=== PATIENT | male | born 1945 | race Caucasian/White ===

== ENCOUNTER 2017-10-14 05:20 | Inpatient (IN) | payer MEDICARE, SELFPAY ==
[2017-09-29 12:07] VITALS: BP 157/88; PULSE 68; RESP 16; TEMP 36.6; O2SAT 97; BMI 40.7
--- NOTE | 2017-09-29 12:13 | SDCEKG_ITS ---
Test Reason : Blood Pressure : / mmHG Vent. Rate : 070 BPM Atrial Rate : 070 BPM P-R Int : 168 ms QRS Dur : 104 ms QT Int : 400 ms P-R-T Axes : 023 048 052 degrees QTc Int : 432 ms Normal sinus rhythm Normal ECG Confirmed by LINO PERES, CHANDU ([id number]), editor magazine BRANDON HURTADO ([id number]) on 10/01/2017 4:15:23 PM Referred By: Francisco Moya Confirmed By:CHANDU HUYNH MD
[2017-09-29 12:56] LABS: Absolute Lymphocyte Count 2.02 X10^3/ul (0.83-4.51); Absolute Neutrophil Count 4.5 X10^3/uL (2.0-7.7); Basophil# 0.04 X10^3/uL; Basophil% 0.5 % (0-1); Eosinophil# 0.19 X10^3/uL; Eosinophils% 2.6 % (0-5); Hematocrit 43.3 % (40-54); Hemoglobin 14.7 g/dl (13.0-16.5); Lymphocyte # 2.02 X10^3/ul (4.0); Lymphocyte % 27.6 % (19-41); Mean Corp Hgb Conc 33.9 g/gl (32-36); Mean Corpuscular Hgb 29.8 pg (27.0-32.0); Mean Corpuscular Volume 87.8 fL (80-94); Mean Platelet Vol. 10.9 fl (6.2-12.0); Monocyte# 0.61 X10^3/uL; Monocyte% 8.3 % (0-10); Neutrophil # 4.45 X10^3/uL (2.7-7.7); Neutrophil % 60.7 % (47-70); Platelet Count 196 K/mm3 (150-450); RBC Distribution Width CV 13.5 % (11.6-14.6); Red Blood Count 4.93 M/mm3 (4.6-6.2); White Blood Count 7.3 K/mm3 (4.4-11.0)
[2017-09-29 12:58] LABS: POSITIVE COUNT NO; POSITIVE DIFFERENTIAL NO; POSITIVE MORPHOLOGY NO
--- NOTE | 2017-09-29 12:58 | PCM.HP.BLA ---
History and Physical DATE OF SURGERY: 10/14/2017 SCHEDULED PROCEDURE: Left total shoulder arthroplasty, possible reverse total shoulder arthroplasty HISTORY OF PRESENT ILLNESS: This is a 72-year-old male who is been having ongoing shoulder pain for over 1 year. He states it is progressively become worse. Pain can reach as high as a 10 out of 10. He has difficult time raising his left shoulder due to the pain. He continues to lose range of motion of left shoulder. Patient does have grinding and popping sensation in the left shoulder. Pain is primarily over the anterior and lateral aspect. Patient has been using Tylenol arthritis 3 times a day with no significant relief. His primary care physician has him on an anti-inflammatory. X-rays of the left shoulder has shown severe glenohumeral osteoarthritis. Patient currently denies any chest pain, shortness of breath, fevers chills, or recent infections. Patient does have medical history pertinent for hypertension as well as previous stroke in the past. We are obtaining surgical clearance from patient's primary care physician. REVIEW OF SYSTEMS: ROS: Const: Reports hard of hearing, but denies anorexia, change in appetite, fever, vision problems and weight change. CV: Denies chest pain, heart murmur, irregular heartbeat and peripheral vascular disease. Resp: Denies asthma, cough, pneumonia, sleep apnea, SOB, tuberculosis and wheezing. GI: Denies constipation, diarrhea, difficulty swallowing, heartburn, nausea, bloody stools and vomiting. : Urinary: denies incontinence. Musculo: Reports leg swelling, limp, trouble walking and weakness. Skin: Denies Raynaud's, history of shingles and tattoo. Neuro: Denies ambulatory dysfunction, dizziness, numbness/tingling and tremor. Psych: Reports stress, but denies anxiety, depression, insomnia and mental illness. Chan/Lymph: Denies anemia, bleeding/bruising tendency and past transfusion. Reviewed, no changes. PAST MEDICAL HISTORY: Advance Care Plan: Other Directive, POA Effective Date: 09/10/2017 Other Directive, LIVING WILL Effective Date: 09/10/2017 PMH: Medical Problems: Arthritis, High Blood Pressure, Hypercholesterolemia, Stroke Accidents: Left Knee Injury - (2000) Surgical Hx: Knee Arthroscopy Lt - (2000) DR. BUBBA HURTADO LT TKR - (03/05/2011) [email or web address] RT TKR - (05/12/2012) MARIA TERESA @ [facility] Hip Replacement RT - (08/15/2015) [email or web address] Anesthesia Complications: None Assistive Devices: Glasses, Dentures, Hearing Aid Reviewed and updated. 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 Personal Habits: Smoking: Patient is a former smoker.Cigarette Use: Never Smoked Cigarettes.Alcohol: Denies use.Drug Use: Denies Use.Enjoy Exercising: Exercises 1-3 X/Week. Reviewed, no changes. VITALS: Ht: 67 Wt: 260lb Wt k.[id number] BMI: 40.7 BP: 134/82 Pulse: 76 Resp: 16 T: 97.8 T: 36.6C ALLERGIES: No Known Drug Allergy MEDICATIONS: Hydrochlorothiazide 25 mg 1 po qdAY, Lisinopril 20mg 1 tab PO daily, Amlodipine Besylate 5 mg 1 tab PO daily, Etodolac 500 mg 1 by mouth every day, Pravastatin Sodium 10 mg 1/2 PO qday, Potassium Chloride ER 10 Meq 1po qday, Aspir-81 81 mg 1 by mouth every day PRE-OP EXAM: General appearance:NORMAL Other: Eyes: Conjunctivae and lids: NORMAL Pupils: ERR Ears, Nose, Mouth, and Throat: NORMAL Other: Inspection of lips, teeth and gums: NORMAL Other: Neck: Examination of neck: no masses noted. Respiratory: Assessment of respiratory effort: NORMAL Other: Auscultation of lungs: clear to auscultation no wheezes, rhonchi or rales. Cardiovascular: Auscultation of heart: regular rate and rhythm, no murmurs, gallops or rubs. Exam of carotid arteries: NORMAL Other: Gastrointestinal: Exam of abdomen: soft, nontender, nondistended bowel sounds present. PHYSICAL EXAMINATION: On exam left shoulder is cool to touch without erythema. Patient has tenderness to palpation of the anterior and lateral aspect of the left shoulder. Patient has limited active range of motion the left shoulder secondary to pain. Passively patient can forward elevate to 90?. Patient has decreased strength on the left shoulder. Sensations intact to light touch. IMAGING STUDIES: X-rays were obtained at [facility] [place] on September 18, 2017 of the left shoulder which does reveal severe glenohumeral osteoarthritis with joint space narrowing, posterior glenoid wear and inferior osteophyte formation of the humeral head. IMPRESSION: 1. Severe left shoulder osteoarthritis 2. Hypertension 3. Hypercholesterolemia 4. History of stroke PLAN: Dr. Moya did discuss and review with the patient all treatment options including surgical versus nonsurgical. Patient wishes to proceed with above-stated procedure. Potential risks, benefits, and complications of this procedure were discussed in detail including but not limited to , infection, nerve and blood vessel damage, persistent pain, numbness, tingling, paresthesias, blood clot, pulmonary embolism, and requirement for further surgery. The patient expressed full understanding has no further questions for the doctor. Patient does agree to proceed with the above-stated procedure and has signed the surgery consent form. Patient will undergo preoperative lab work and EKG. We are obtaining surgical clearance from patient's primary care physician. ___ I have re-examined the patient. There are no clinical changes since date of exam. ___ See progress notes for changes. ___ Dictated on admission Date: Time: Signature:
--- NOTE | 2017-09-29 13:04 | HP.PCM_ITS ---
History and Physical DATE OF SURGERY: 10/14/2017 SCHEDULED PROCEDURE: Left total shoulder arthroplasty, possible reverse total shoulder arthroplasty HISTORY OF PRESENT ILLNESS: This is a 72-year-old male who is been having ongoing shoulder pain for over 1 year. He states it is progressively become worse. Pain can reach as high as a 10 out of 10. He has difficult time raising his left shoulder due to the pain. He continues to lose range of motion of left shoulder. Patient does have grinding and popping sensation in the left shoulder. Pain is primarily over the anterior and lateral aspect. Patient has been using Tylenol arthritis 3 times a day with no significant relief. His primary care physician has him on an anti-inflammatory. X-rays of the left shoulder has shown severe glenohumeral osteoarthritis. Patient currently denies any chest pain, shortness of breath, fevers chills, or recent infections. Patient does have medical history pertinent for hypertension as well as previous stroke in the past. We are obtaining surgical clearance from patient's primary care physician. REVIEW OF SYSTEMS: ROS: Const: Reports hard of hearing, but denies anorexia, change in appetite, fever, vision problems and weight change. CV: Denies chest pain, heart murmur, irregular heartbeat and peripheral vascular disease. Resp: Denies asthma, cough, pneumonia, sleep apnea, SOB, tuberculosis and wheezing. GI: Denies constipation, diarrhea, difficulty swallowing, heartburn, nausea, bloody stools and vomiting. : Urinary: denies incontinence. Musculo: Reports leg swelling, limp, trouble walking and weakness. Skin: Denies Raynaud's, history of shingles and tattoo. Neuro: Denies ambulatory dysfunction, dizziness, numbness/tingling and tremor. Psych: Reports stress, but denies anxiety, depression, insomnia and mental illness. Chan/Lymph: Denies anemia, bleeding/bruising tendency and past transfusion. Reviewed, no changes. PAST MEDICAL HISTORY: Advance Care Plan: Other Directive, POA Effective Date: 09/10/2017 Other Directive, LIVING WILL Effective Date: 09/10/2017 PMH: Medical Problems: Arthritis, High Blood Pressure, Hypercholesterolemia, Stroke Accidents: Left Knee Injury - (2000) Surgical Hx: Knee Arthroscopy Lt - (2000) DR. BUBBA HURTADO LT TKR - (03/05/2011) [email or web address] TKR - (05/12/2012) MARIA TERESA @ [facility] Hip Replacement RT - (08/15/2015) MARIA [email or web address] Anesthesia Complications: None Assistive Devices: Glasses, Dentures, Hearing Aid Reviewed and updated. 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 Personal Habits: Smoking: Patient is a former smoker.Cigarette Use: Never Smoked Cigarettes.Alcohol: Denies use.Drug Use: Denies Use.Enjoy Exercising: Exercises 1-3 X/Week. Reviewed, no changes. VITALS: Ht: 67 Wt: 260lb Wt k.936 BMI: 40.7 BP: 134/82 Pulse: 76 Resp: 16 T: 97.8 T: 36.6C ALLERGIES: No Known Drug Allergy MEDICATIONS: Hydrochlorothiazide 25 mg 1 po qdAY, Lisinopril 20mg 1 tab PO daily, Amlodipine Besylate 5 mg 1 tab PO daily, Etodolac 500 mg 1 by mouth every day, Pravastatin Sodium 10 mg 1/2 PO qday, Potassium Chloride ER 10 Meq 1po qday, Aspir-81 81 mg 1 by mouth every day PRE-OP EXAM: General appearance:NORMAL Other: Eyes: Conjunctivae and lids: NORMAL Pupils: ERR Ears, Nose, Mouth, and Throat: NORMAL Other: Inspection of lips, teeth and gums: NORMAL Other: Neck: Examination of neck: no masses noted. Respiratory: Assessment of respiratory effort: NORMAL Other: Auscultation of lungs: clear to auscultation no wheezes, rhonchi or rales. Cardiovascular: Auscultation of heart: regular rate and rhythm, no murmurs, gallops or rubs. Exam of carotid arteries: NORMAL Other: Gastrointestinal: Exam of abdomen: soft, nontender, nondistended bowel sounds present. PHYSICAL EXAMINATION: On exam left shoulder is cool to touch without erythema. Patient has tenderness to palpation of the anterior and lateral aspect of the left shoulder. Patient has limited active range of motion the left shoulder secondary to pain. Passively patient can forward elevate to 90?. Patient has decreased strength on the left shoulder. Sensations intact to light touch. IMAGING STUDIES: X-rays were obtained at [facility] [place] on September of the left shoulder which does reveal severe glenohumeral osteoarthritis with joint space narrowing, posterior glenoid wear and inferior osteophyte formation of the humeral head. IMPRESSION: 1. Severe left shoulder osteoarthritis 2. Hypertension 3. Hypercholesterolemia 4. History of stroke PLAN: Dr. Moya did discuss and review with the patient all treatment options including surgical versus nonsurgical. Patient wishes to proceed with above- stated procedure. Potential risks, benefits, and complications of this procedure were discussed in detail including but not limited to , infection , nerve and blood vessel damage, persistent pain, numbness, tingling, paresthesias, blood clot, pulmonary embolism, and requirement for further surgery. The patient expressed full understanding has no further questions for the doctor. Patient does agree to proceed with the above-stated procedure and has signed the surgery consent form. Patient will undergo preoperative lab work and EKG. We are obtaining surgical clearance from patient's primary care physician. ___ I have re-examined the patient. There are no clinical changes since date of exam. ___ See progress notes for changes. ___ Dictated on admission Date: Time: Signature:
[2017-09-29 13:20] LABS: Anion Gap 7 (5-15); BUN 18 mg/dL (7-18); BUN/Creat Ratio 22.1 RATIO (10-20); Calcium,Total 8.8 mg/dL (8.5-10.1); Chloride 107 mmol/L (98-107); Creatinine, Serum 0.81 mg/dL (0.70-1.30); EST Glomerular Filtration Rate 100 mL/min (>60); Est Glom Filt Rate - Afr Amer 121 mL/min (>60); Estimated Creatinine Clearance 79.34 ml/min; Glucose 75 mg/dL (74-106); Potassium 3.7 mmol/L (3.5-5.1); Sodium Level 142 mmol/L (136-145)
[2017-10-14] VITALS (13 sets, daily range): BP systolic 137–189; BP diastolic 63–90; PULSE 63–91; RESP 16–18; TEMP 35.8–37.1; O2SAT 90–98; BMI 40.7; BMI 41.8
[2017-10-14] MEDS: oxyCODONE HCl Cr 10 MG Tablet PO (05:54)
[2017-10-14] MEDS: Celecoxib 200 MG Capsule 400 MG PO (05:54)
[2017-10-14] MEDS: Acetaminophen 500 MG Tablet 1000 MG PO (05:54)
[2017-10-14] MEDS: Cefazolin 2 GM in 0.9% Normal Saline 100 ML IV (07:25)
--- NOTE | 2017-10-14 09:11 | OP.PCM_ITS ---
Report of Operation Date of Procedure: 10/14/17 Pre-Operative Diagnosis: Left shoulder primary glenohumeral osteoarthritis Post-Operative Diagnosis: Left shoulder primary glenohumeral osteoarthritis Surgery/Procedure Performed:: Anatomic total shoulder replacement Description of Surgical Findings:: Preserve rotator cuff tendon, stable shoulder structural draftsman: Geo Lazaro Type of Anesthesia:: General Anesthesiologist: Harpreet Alfred Special Medications: 2 g Ancef, 1 g TXA at incision, 1 g TXA closure, 10 mg Decadron, joint cocktail (5 mg Duramorph, 30 mL of 0.5% Ropivicaine, 1000 units of epinephrine, 30 mg of Toradol), IV vancomycin throughout case Specimen's removed: Bony cuts Estimated Blood Loss (mL): 100 Fluids Replaced: 1100 mL crystalloid Description of Procedure: Components used 1. Equinox glenoid medium beta 2. Equinox 0 mm humeral replicator plate 3. Equinox 47 mm, 18 mm humeral head 4. Equinox humeral stem primary press-fit preserve 10 mm mm size Brief history/Operative indications: 72 yo m with history of L shoulder primary glenohumeral osteoarthritis. Patient failed conservative measures as mentioned in the H&P. After discussion of risk and benefits of reverse total shoulder replacement including but not limited to blood loss, DVTs, PEs, nerve vessel damage, infection, general risk of anesthesia including loss of life, instability and stiffness patient demonstrating understanding wish to proceed was able to sign informed consent. Medical clearance was obtained. Procedure: On the date of the procedure, patient's L upper extremity was marked in the preoperative area. Patient was taken back to the operating room where they were placed on the table in the supine position. Anesthesia assumed control of the C-spine and airway, then administered anesthetic. All bony prominences were identified well-padded, the head was secured and the patient was placed in the beachchair position at about 35? inclination. Anesthesia remained in control of the C-spine airway throughout the remainder of the procedure. Patient was then appropriately fastened to the table and the L upper extremity was prepped in a sterile fashion. The surgeons then scrubbed. Upon reentering the room, the L upper extremity was draped in a sterile fashion and the incision was marked out. Timeout was called, everyone agreed upon the side, the site, the procedure to be performed, patient identity and antibiotics given. Incision was taken down through skin and subcutaneous tissue, fat down to fascia. The stripe of the deltopectoral interval and cephalic vein were identified and blunt dissection was used to retract the deltoid. The cephalic vein was retracted laterally. Clavipectoral fascia was then incised and a cobra retractor was placed in the wound. The proximal one third of the pectoralis major insertion was released. Pectoralis tendon insertion was used to tenodesed the biceps tendon which was identified in the bicipital groove. Tenodesis was done with #1 Vicryl. Proximally we followed the biceps tendon after transecting it into the rotator interval. The rotator interval was split and the arm was externally rotated. The split was 1 cm medial to the bicipital groove. Subscapularis tendon was released using a lesser paucity osteotomy. We released down the anterior portion of the humeral head and a castañeda elevator was used to release the inferior portion of the humeral head. The arm was externally rotated and the shoulder was dislocated. The Bazari humeral head cutting guide was used to make humeral cut. This was done even with the articular surface. Once his humeral head cut was made humerus was retracted out of the way and the glenoid was exposed. After exposing the glenoid, the labrum and the remaining proximal biceps were debrided. At this time we are able to view the entire outer edge of the glenoid. A central pin was placed we sequentially reamed over this central pin to medium. Once this was completed the central pedicle was drilled. Wound was closely irrigated out with normal saline we then drilled sequentially for the coinciding 3 peg holes. Once these were drilled graft was placed into the central peg of the glenoid and the glenoid was impacted into place. The glenoid was secure we directed our attention to the humerus The humerus was again externally rotated exposing the proximal portion of the humerus. Central canal finder was then used to open up the canal. We then broached to a 10mm stem. We trialed the 0mm replicator plate, with the 47, 18mm humeral head. We obtained an adequate reduction at this time with a nice stable shoulder. Good internal rotation to the gluteus, forward elevation to 140?, external rotation to 20? and 50% posterior translation. Final components were then assembled on the back table, trials were removed and the wound was copiously irrigated with normal saline after dislocating the shoulder. Once the final components were assembled they were impacted into place. Shoulder was then reduced and found to be stable with good range of motion. Subscapularis tendon was then repaired securely with FiberWire. A 500 mL dilute Betadine solution was used to irrigate out the wound for 3 minutes followed by 1 L of normal saline lavage. The deltopectoral fascia was then closed using #1 Vicryl skin was closed using 2-0 Vicryl interrupted sutures and final skin closure was done with 3-0 Monocryl. Steri-Strips are placed for final skin closure. Sterile dressing was placed patient was then placed in a sling and awakened by anesthesia. Patient was then transferred to the PACU for recovery. Postoperative plan: Patient will be admitted to the hospital overnight. They will get physical therapy starting in 2 weeks with normal postoperative regimen. Patient will be placed on 81 mg aspirin daily for DVT prophylaxis. The first postoperative appointment will be in 2 weeks for wound check and initiation of phase 1 physical therapy. During the course of the procedure the physician botany laboratory assistant played a vital role. His intimate knowledge of my steps in the procedure aided in safe and expedient completion of the procedure. The PA played a vital rolls in positioning particularly in obtaining the appropriate beach chair position and securing the patient's body and head to the table. The PA was also vital in the retraction of soft tissues during the exposure and especially the glenoid work as this is a vital part of the procedure to prevent neurovascular damage. the PA was also vital and protecting soft tissues during times of bony cuts and reaming. He also played a vital role in closure with my direct supervision. The PA was also important during reduction and dislocation of the joint and trials intraoperatively. Grafts/Implants Used: [employer] Equinox preserve stem - Complications None - Admit VTE Documentation VTE Present on Admission: No VTE Mechan Device Prophylaxis: SCD's, Thigh High REKAH Hose VTE Pharm Prophylaxis ordered?: Yes
--- NOTE | 2017-10-14 09:48 | RAD_ITS ---
STUDY: X-RAY - LEFT SHOULDER REASON FOR EXAM: Male, 72 years old. Total shoulder replacement. TECHNIQUE: AP view(s) of the shoulder. COMPARISON: None. FINDINGS: The patient is status post left shoulder replacement. There is good alignment. Postoperative soft tissue changes. Increased pulmonary markings at the left lung base suggestive of atelectasis and/or infiltrate. RAD/Shoulder One View IMPRESSION: Status post left shoulder replacement. There is good alignment. Postoperative soft tissue changes. Electronically Signed: Carlo Hardin MD at 9:59 EDT Tel [phone], Service support ,
[2017-10-14] MEDS: Lisinopril 20 MG Tablet PO (12:48)
[2017-10-14] MEDS: Ascorbic Acid 500 MG Tablet PO (12:48)
[2017-10-14] MEDS: Etodolac 200 MG Capsule PO (12:48)
[2017-10-14] MEDS: Famotidine 20 MG Tablet PO (12:49)
[2017-10-14] MEDS: Etodolac 300 MG Capsule PO (12:49)
[2017-10-14] MEDS: hydroCHLOROthiazide 25 MG Tablet PO (12:49)
[2017-10-14] MEDS: Aspirin E.C. 81 MG Tablet PO (12:49)
[2017-10-14] MEDS: amLODIPine 5 MG Tablet PO (12:49)
[2017-10-14] MEDS: Cefazolin 1 GM/50 ML BAG IV ×2 (14:04→22:29)
[2017-10-14] MEDS: Lactated Ringers 1,000 ML 125 ML IV ×2 (15:30→23:46)
--- NOTE | 2017-10-14 15:41 | CASEMGMT ---
RN ILEANA Face to Face with patient for initial transition planning/care coordination assessment. RN CM introduced self and role at [facility]. Patient lying in bed, sleeping, at bedside. willing to participate in assessment and is able to answer all questions appropriately. Care providers, pharmacy, and demographics verified. Patient lives with in a RV. denies need for DME at this time. Patiet wishes to discharge home and is setup for outpatient therapy to begin in 2 weeks with providing transportation. states she has no further needs or concerns at this time. CM to follow for discharge planning needs that may arise. Disposition Plan: Patient to discharge home with family support and follow-up plans in place.
[2017-10-14] MEDS: Atorvastatin Calcium 10 MG Tablet 5 MG PO (22:29)
[2017-10-15 03:00] VITALS: BP 131/63; PULSE 73; RESP 18; TEMP 37.1; O2SAT 97
[2017-10-15 03:02] VITALS: PULSE 73; RESP 18; O2SAT 97
[2017-10-15] MEDS: 0.9% NaCl Peripheral Flush Adult/Peds IV (06:28)
--- NOTE | 2017-10-15 08:11 | PN.ORTHO_ITS ---
Subjective: The patient was sitting in bedside chair upon examination. Patient denies any chest pain, shortness of breath, dizziness, lightheadedness, nausea or vomiting , or calf pain. Pain is controlled on medications. No adverse overnight events. Overall patient is doing well with regards to the left shoulder. Patient does wish to try to go home today. Objective: Dressing is C/D/I Ultra-sling fitting appropriately Sensation intact to axillary, radial, median, and ulnar distribution Motor intact to AIN, PIN, and ulnar nerve - Physical Exam General: Alert, Oriented x3, Cooperative, No apparent distress Vital Signs Temp Pulse Resp BP Pulse Ox 98.7 F 73 18 131/63 H 97 10/15/17 03:00 10/15/17 03:02 10/15/17 03:02 10/15/17 03:00 10/15/17 03:02 Oxygen Flow Rate (L/min) 2 Oxygen Delivery Method Nasal Cannula Weight: 121.1 kg Body Mass Index (BMI) 41.8 Intake and Output for Last 24 Hours 10/13/17 10/14/17 10/15/17 23:59 23:59 23:59 Intake Total 2248.5 / 2248.5 2453 / 2453 Output Total 100 / 100 950 / 950 Balance 2148.5 / 2148.5 1503 / 1503 Medical Necessity - Tobacco Use Smoking Status: Never smoker Tobacco Use: Non-smoker Assessment/Plan 1. S/P left anatomic total shoulder arthroplasty POD #1 2. Continue Pain Medications: Tylenol and OxyIR 3. DVT Prophylaxis: 81 mg aspirin 4. PT/OT: Continue UltraSling at all times. Okay to come out of sling 3-4 times daily for left elbow, wrist, and hand range of motion. No range of motion of left shoulder until scheduled formal physical therapy 2 weeks postoperatively. 5. Encouraged Incentive Spirometry 6. Disposition: Orthopedically stable, plan will be for discharge home today. Prescriptions are attached to chart. Patient will follow-up postoperatively per [facility] postop instructions.
--- NOTE | 2017-10-15 08:19 | PCM.DC.ORTHO ---
Discharge Diet: No Restrictions Discharge Activity: May Not Drive May shower in (days): 1 - Turned dressing away from water Ice area for (Minutes): 20 - Every 1-2 hours while awake Weight Bearing Status: No weight bearing - Left upper extremity Keep extremity elevated above heart level: Operative Extremity Call your doctor if your incision/area has: Continuous Slow Oozing, Sudden Increased Bleeding, Increased Pain/ Swelling, Increased Redness, Foul Smelling Discharge Call your doctor if you observe: Fever of 101 or Higher, Coldness, Increased Pain, Numbness or Tingling, Change in Color Remove Dressing in (days):: 4 - Okay to remove on October 19, 2017 Additional Instructions: Follow [facility] postop instructions Allergies/Adverse Reactions: Allergies No Known Allergies Allergy (Verified 08/07/15 13:03) Medications to take at Discharge Ascorbic Acid [Vitamin C] 500 mg PO DAILY 08/07/15 Hydrochlorothiazide [Hctz] 25 mg PO DAILY 08/07/15 Lisinopril [Zestril] 20 mg PO DAILY 08/07/15 Aspirin E.C. [Ecotrin] 81 mg PO DAILY@0800 09/29/17 Etodolac [Etodolac ER] 500 mg PO DAILY 09/29/17 Amlodipine [Norvasc] 5 mg PO DAILY 10/14/17 Cholecalciferol (VIT D3) [Vitamin D3] 5,000 unit PO DAILY 10/14/17 Potassium Chloride 10 meq PO DAILY 10/14/17 Pravastatin Sodium [Pravachol] 5 mg PO QHS 10/14/17 Acetaminophen [Tylenol] 1,000 mg PO Q8 #90 tab 10/15/17 Oxycodone [Oxyir] 5 - 10 mg PO Q4H PRN PRN 5 Days #60 tab 10/15/17 Senna/Docusate Sodium [Senokot-S] 2 tab PO BID PRN PRN #20 tab 10/15/17 The following prescriptions were given: Oxycodone [Oxyir] 5 - 10 mg PO Q4H PRN PRN 5 Days #60 tab PRN Reason: Pain Acetaminophen [Tylenol] 1,000 mg PO Q8 #90 tab Senna/Docusate Sodium [Senokot-S] 2 tab PO BID PRN PRN #20 tab PRN Reason: Constipation Primary Care Physician: Violeta Liao MD [Primary Care Provider] - Test Results: Please Follow Up With: [facility] When: 10/27/17 @ 11:30 am Please Follow Up With: Geo Lazaro PA-C When: 10/27/17 @ 10:30 am
[2017-10-15 09:00] VITALS: BP 130/68; PULSE 72; RESP 18; TEMP 36.9; O2SAT 95
== END 2017-10-15 10:20 | disposition home or self-care (01) | DRG 483 ==
LOC: ACINP 05:22 → MS3 05:24
PROVIDERS: Admitting Provider Specialist; Visit Provider Specialist
PROC: 0RRK0JZ Replacement of Left Shoulder Joint with Synthetic Substitute, Open Approach (ICD-10-PCS; CPT 23472; principal; 2017-10-14 06:45)
DX: M19.012 Primary osteoarthritis, left shoulder (principal); I10 Essential (primary) hypertension; Z86.73 Personal history of transient ischemic attack (TIA), and cerebral infarction without residual deficits; E78.00 Pure hypercholesterolemia, unspecified
CPT/HCPCS: 73020; 80048; 85025; 87077; 87081; 93005; 97166; C1776; J7040; J7120; A4216; J2405